=== PATIENT | female | born 2000 | race Caucasian/White ===

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

== ENCOUNTER 2018-01-03 10:09 | Emergency (ER) | payer MEDICAID ==
[2018-01-03 10:15] VITALS: BMI 26.7
--- NOTE | 2018-01-03 10:52 | ED PDOC ---
HPI: General Adult Time Seen by Provider: 01/03/18 10:30 Chief Complaint (Nursing): ENT Problem Chief Complaint (Provider): throat pain History Per: Patient History/Exam Limitations: no limitations Onset/Duration Of Symptoms: Days (2) Have you had recent travel within the past 21 days to any of the following countries: [place], [place], [place] or [place]?: No Current Symptoms Are (Timing): Still Present Severity: Moderate Additional Complaint(s): pt p/w + 2 days onset of sore throat, worse with swallowing foods/liquids, Pt IS NOT drooling, no voice changes; pt denied fever/chills/sweats, no neck pain, + mild headaches, no cp/sob/palpitations, no abd pain, no n/v, no numbness/ tingling; no urinary/bowel changes; pt states she took OTC aleve/Advil with min/ no relief; pt + sick contact, no fall/trauma/travel; pt arrived to the ED for further eval; pt's without other complaints. pt denied rashes pt is here for further eval PCP: none immunization: up to date LMP: 3 months ago?? Past Medical History Reviewed: Historical Data, Nursing Documentation, Vital Signs Vital Signs: Last Vital Signs Temp 98 F 01/03/18 10:13 Pulse 109 H 01/03/18 10:13 Resp BP 104/66 01/03/18 10:13 Pulse Ox 98 01/03/18 11:36 - Medical History PMH: Denies: Anemia, Anxiety, Arthritis, Asthma, Bronchitis, CHF, Crohn's Disease , Depression, Fibromyalgia, Fractures, Gastritis, Gall Bladder Disease, HIV, HTN , Hypercholesterolemia, Hyperthyroidism, Hypothyroidism, Kidney Stones, Migraine , Mitral Valve Prolapse, Pancreatitis, Peripheral Edema, Pneumonia, Pulmonary Embolism, Chronic Kidney Disease, Seizures, Sickle Cell Disease, Sleep Apnea - Surgical History Surgical History: Denies: Appendectomy, Cholecystectomy - Family History Family History: States: Unknown Family Hx - Living Arrangements Living Arrangements: Alone - Social History Current smoker - smoking cessation education provided: No Ex-Smoker (has not smoked in the last 12 months): No Alcohol: None Drugs: Denies - Immunization History Hx Tetanus Toxoid Vaccination: No Hx Influenza Vaccination: No - Home Medications Home Medications: Ambulatory Orders Medication Instructions Recorded Cephalexin [cephalexin] 500 mg PO BID #6 cap 05/14/17 Ibuprofen [Motrin Tab] 600 mg PO QID PRN #20 tab 09/08/17 Nitrofurantoin Macrocrystals 100 mg PO BID #14 cap 09/08/17 [Macrobid] Oseltamivir Phosphate [Tamiflu] 75 mg PO BID #10 capsule 09/08/17 Ciprofloxacin 0.3% [Ciloxan 0.3% 1 drop OU QID #1 bottle 09/24/17 Ophth SOLN] Acetaminophen [Tylenol 325mg tab] 2 tab PO QID PRN #30 tab 01/03/18 Lidocaine 2% Viscous 10 ml MM QID PRN #100 ml 01/03/18 - Allergies Allergies/Adverse Reactions: Allergies Allergy/AdvReac Type Severity Reaction Status Date / Time No Known Allergies Allergy Verified 05/06/15 22:45 Review of Systems ROS Statement: Except As Marked, All Systems Reviewed And Found Negative Constitutional: Negative for: Fever, Chills, Sweats, Weakness Eyes: Negative for: Pain ENT: Positive for: Throat Pain, Throat Swelling. Negative for: Ear Pain Cardiovascular: Negative for: Chest Pain, Paroxysmal Noc. Dyspnea Respiratory: Positive for: Cough. Negative for: Shortness of Breath, SOB with Exertion, Sputum Gastrointestinal: Negative for: Nausea, Vomiting, Abdominal Pain Genitourinary Female: Negative for: Dysuria, Frequency, Hematuria, Vaginal Discharge, Vaginal Bleeding Musculoskeletal: Negative for: Neck Pain, Shoulder Pain, Back Pain Skin: Negative for: Rash Neurological: Positive for: Headache. Negative for: Weakness, Altered Mental Status, Dizziness Psych: Negative for: Anxiety, Depression, Psychosis Physical Exam - Reviewed Nursing Documentation Reviewed: Yes Vital Signs Reviewed: Yes (elevated HR) - Physical Exam Comments: General: alert/awake, GCS = 15, oriented x 3, resting in bed, uncomfortable, cooperative, interactive; NAD Head: NC/AT EYE: PERRLA, EOMI, sclera anicteric, no nystagmus, no photophobia; visual field intact b/l Facial: WNL Oral: uvula/tongue are midline, no exudate/lesions, no pharyngeal erythema/ swelling noted, one whitish spot is noted to right upper tonsiliar region, NO masses/FB/lesions noted; no drooling/stridor, no dysphonia; intact dentitions NECK: intact ROM, no midline tenderness, no nuchal rigidity, no meningeal signs ; no step off; + anterior b/l LAD, NON-tender Chest: CTA b/l, no w/r/r; no tachypenia, no accessory muscle use noted Cardiac: +S1, +S2, no m/r/r, no tachycardia Abdominal: +BS, soft/nd/nt, well nourished patient; no masses/rebound/guarding/ rigidity; no dee's sign, no mcburney's point tenderness Extremities: intact ROM, strength 5/5 grossly intact in all limbs, neurovasc intact b/l; + ambulatory; reflex +2/2 BACK: no step off, no midline tenderness, NO crepitus, no gross deformities noted; Intact ROM SKIN: cap refill < 1 sec, no ulcerations, no petechiae, no rashes NEURO: CNII-XII WNL, no facial asymmetries, no slurr speech, oriented x 3 NIH stroke scale ~ 0 Psych: normal insight, normal affect; follows command with ease - Laboratory Results Urine POC: Positive - ECG O2 Sat by Pulse Oximetry: 98 Pulse Ox Interpretation: Normal - Progress ED Course And Treament: 12:05pm - pt felt improved after the medication pt is made aware of the Positive preg test pt is made aware of her medical results pt is encouraged fluid hydration pt will f/u as directed pt will be discharged home Re-evaluation Time: 11:34 Condition: Improving,but remains with symptoms Medical Decision Making Medical Decision Making: Impression: sore throat/headache/coughing i have consider all the differential diagnosis regarding pt's chief medical complaints/clinical findings, including but are not limited to: likely viral, will r/o bacterial; symptomatic treatment; pt also wants to check her preg status A/P: sore throat/headache, coughing - u preg - rapid strep test - supportive care - observe/reevaluation Disposition - Clinical Impression Clinical Impression: Sore throat (viral), - Patient ED Disposition Is Patient to be Admitted: No Counseled Patient/Family Regarding: Studies Performed, Diagnosis, Need For Followup, Rx Given - Disposition Referrals: PCP,NO [Non-Staff] - [facility] [place] [Outside] [facility] [employer] [Outside] [facility] [Outside] [facility] [Outside] Disposition: Routine/Home Disposition Time: 12:10 Condition: STABLE Additional Instructions: Make sure to see your doctor in 1-2 days DRINK PLENTY OF FLUIDS take your medications as prescribed RETURN TO ED IF worse pain, cant breath, persistent vomiting, high fever >101- 102 for hours, altered behavior, slurr speech, facial changes, focal weakness ( arm/leg or both), unable to urinate, heavy/persistent bleeding, passing out, chest pain, or other medical emergencies Prescriptions: Acetaminophen [Tylenol 325mg tab] 2 tab PO QID PRN #30 tab PRN Reason: Pain, Mild (1-3) Lidocaine 2% Viscous 10 ml MM QID PRN #100 ml PRN Reason: Sore Throat Instructions: Sore Throat in Adults, Medications and , Viral Pharyngitis Forms: [facility] (Yakut) Print Language: YORUBA
[2018-01-03] MEDS ORDERED: Dexamethasone 4 mg/1 ml IM ONE (12:08)
[2018-01-03 13:00] VITALS: BP 124/65; PULSE 76; RESP 17; TEMP 97.8; O2SAT 99
== END 2018-01-03 12:58 | disposition home or self-care (01) ==
LOC: H.ER 10:09
DX: J02.9 Acute pharyngitis, unspecified (principal); Z33.1 Pregnant state, incidental
CPT/HCPCS: 81025; 87070; 87430; 96372; 99282; J1100

== ENCOUNTER 2018-01-05 10:08 | Emergency (ER) | payer MEDICAID ==
[2018-01-05 10:08] VITALS: BMI 26.7
[2018-01-05 10:21] VITALS: BP 99/64; PULSE 94; RESP 16; TEMP 98.3; O2SAT 99
--- NOTE | 2018-01-05 10:33 | ED PDOC ---
HPI: CCC, URI, Sore Throat Time Seen by Provider: 01/05/18 10:24 History Per: Patient Onset/Duration Of Symptoms: Days (3) Current Symptoms Are (Timing): Still Present Location Of Pain: Throat Associated Symptoms: Sore Throat. denies: Fever, Cough Severity: Mild Pain Scale Rating Of: 2 Additional Complaint(s): Sore throat x 3 days. No fever or cough. No SOB Past Medical History Vital Signs: Last Vital Signs Temp 98.3 F 01/05/18 10:19 Pulse 94 H 01/05/18 10:19 Resp 16 01/05/18 10:19 BP 99/64 L 01/05/18 10:19 Pulse Ox 99 01/05/18 10:19 - Medical History PMH: Denies: Anemia, Anxiety, Arthritis, Asthma, Bronchitis, CHF, Crohn's Disease , Depression, Fibromyalgia, Fractures, Gastritis, Gall Bladder Disease, HIV, HTN , Hypercholesterolemia, Hyperthyroidism, Hypothyroidism, Kidney Stones, Migraine , Mitral Valve Prolapse, Pancreatitis, Peripheral Edema, Pneumonia, Pulmonary Embolism, Chronic Kidney Disease, Seizures, Sickle Cell Disease, Sleep Apnea - Surgical History Surgical History: Denies: Appendectomy, Cholecystectomy - Family History Family History: States: Unknown Family Hx - Immunization History Hx Tetanus Toxoid Vaccination: No Hx Influenza Vaccination: No - Home Medications Home Medications: Ambulatory Orders Medication Instructions Recorded Cephalexin [cephalexin] 500 mg PO BID #6 cap 05/14/17 Ibuprofen [Motrin Tab] 600 mg PO QID PRN #20 tab 09/08/17 Nitrofurantoin Macrocrystals 100 mg PO BID #14 cap 09/08/17 [Macrobid] Oseltamivir Phosphate [Tamiflu] 75 mg PO BID #10 capsule 09/08/17 Ciprofloxacin 0.3% [Ciloxan 0.3% 1 drop OU QID #1 bottle 09/24/17 Ophth SOLN] Acetaminophen [Tylenol 325mg tab] 2 tab PO QID PRN #30 tab 01/03/18 Lidocaine 2% Viscous 10 ml MM QID PRN #100 ml 01/03/18 Azithromycin [Zithromax] 250 mg PO DAILY #6 tab 01/05/18 - Allergies Allergies/Adverse Reactions: Allergies Allergy/AdvReac Type Severity Reaction Status Date / Time No Known Allergies Allergy Verified 05/06/15 22:45 Review of Systems Constitutional: Negative for: Fever ENT: Positive for: Throat Pain Respiratory: Negative for: Cough, Shortness of Breath Physical Exam - Physical Exam Appears: Positive for: Non-toxic, No Acute Distress Skin: Positive for: Normal Color, Warm, DRY ENT: Positive for: Pharyngeal Erythema. Negative for: Tonsillar Exudate Neck: Positive for: Normal, Painless ROM Respiratory: Positive for: CNT, Normal Breath Sounds - ECG O2 Sat by Pulse Oximetry: 99 Disposition - Clinical Impression Clinical Impression: Pharyngitis - Patient ED Disposition Is Patient to be Admitted: No Counseled Patient/Family Regarding: Diagnosis, Need For Followup, Rx Given - Disposition Referrals: [facility] [Outside] Disposition: Routine/Home Disposition Time: 10:33 Condition: FAIR Prescriptions: Azithromycin [Zithromax] 250 mg PO DAILY #6 tab Instructions: Sore Throat in Adults
== END 2018-01-05 10:42 | disposition home or self-care (01) ==
LOC: H.ER 10:08
DX: J02.9 Acute pharyngitis, unspecified (principal)

== ENCOUNTER 2018-01-19 12:27 | Emergency (ER) | payer MEDICAID ==
[2018-01-19 12:27] VITALS: BMI 26.7
--- NOTE | 2018-01-19 12:47 | ED PDOC ---
HPI: Female Pain Time Seen by Provider: 01/19/18 12:39 Chief Complaint (Nursing): Abdominal Pain Chief Complaint (Provider): Vaginal bleeding History Per: Patient History/Exam Limitations: no limitations Onset/Duration Of Symptoms: Days (today) Additional Complaint(s): Vaginal bleeding today. Pelvic cramps till yesterday. No nausea, vomit, diarrhea. No weakness. No back pain. No leg pain. Is 1 month preg. No dysuria. Past Medical History Reviewed: Nursing Documentation, Vital Signs Vital Signs: Last Vital Signs Temp 98.5 F 01/19/18 12:28 Pulse 83 01/19/18 12:28 Resp 14 01/19/18 12:28 BP 108/60 01/19/18 12:28 Pulse Ox 99 01/19/18 12:28 - Medical History PMH: Denies: Anemia, Anxiety, Arthritis, Asthma, Bronchitis, CHF, Crohn's Disease , Depression, Fibromyalgia, Fractures, Gastritis, Gall Bladder Disease, HIV, HTN , Hypercholesterolemia, Hyperthyroidism, Hypothyroidism, Kidney Stones, Migraine , Mitral Valve Prolapse, Pancreatitis, Peripheral Edema, Pneumonia, Pulmonary Embolism, Chronic Kidney Disease, Seizures, Sickle Cell Disease, Sleep Apnea - Surgical History Surgical History: Denies: Appendectomy, Cholecystectomy - Family History Family History: States: Unknown Family Hx - Living Arrangements Living Arrangements: With Family - Immunization History Hx Tetanus Toxoid Vaccination: No Hx Influenza Vaccination: No - Home Medications Home Medications: Ambulatory Orders Medication Instructions Recorded No Known Home Med 01/19/18 - Allergies Allergies/Adverse Reactions: Allergies Allergy/AdvReac Type Severity Reaction Status Date / Time No Known Allergies Allergy Verified 05/06/15 22:45 Review of Systems ROS Statement: Except As Marked, All Systems Reviewed And Found Negative Genitourinary Female: Positive for: Vaginal Bleeding, Pelvic Pain Physical Exam - Reviewed Nursing Documentation Reviewed: Yes Vital Signs Reviewed: Yes - Physical Exam Appears: Positive for: Non-toxic, No Acute Distress Head Exam: Positive for: ATRAUMATIC, NORMAL INSPECTION, NORMOCEPHALIC Skin: Positive for: Normal Color, Warm, DRY ENT: Positive for: Normal ENT Inspection Neck: Positive for: Normal, Painless ROM Cardiovascular/Chest: Positive for: Regular Rate, Rhythm Respiratory: Positive for: CNT, Normal Breath Sounds Gastrointestinal/Abdominal: Positive for: Soft, Tenderness (suprapubic) Back: Positive for: Normal Inspection. Negative for: L CVA Tenderness, R CVA Tenderness Extremity: Positive for: Normal ROM. Negative for: Tenderness, Pedal Edema Neurologic/Psych: Positive for: Alert, Oriented - Laboratory Results Result Diagrams: 01/19/18 13:55 01/19/18 13:55 Interpretation Of Abn Labs: elevated bhcg - ECG O2 Sat by Pulse Oximetry: 99 - CT Scan/US US Other Rad Studies (CT/US): Read By Radiologist Other Rad Interpretation: SLIUP; subchorionc bleed - Progress ED Course And Treament: 1536: Stable. AAOx3. Pain free. Tolerated po. FU with pcp. Disposition - Clinical Impression Clinical Impression: Threatened , Subchorionic bleed - Patient ED Disposition Is Patient to be Admitted: No Counseled Patient/Family Regarding: Studies Performed, Diagnosis, Need For Followup - Disposition [facility] - [facility]20[facility]18 Disposition: Routine/Home Disposition Time: 15:00 Condition: STABLE Additional Instructions: Return if not better in 3 days. Instructions: Threatened Miscarriage
--- NOTE | 2018-01-19 13:57 | US ---
PROCEDURE: OB Pelvic Ultrasound HISTORY: preg and pain COMPARISON: None available. FINDINGS: UTERUS: Single Live intrauterine gestation. Gestational sac diameter is 14 mm equal to 5 weeks 4 days gestational age CRL is 3 mm equal to 5 weeks 6 days gestational age. age (Ultrasound estimated): 5 weeks 5 days Date of delivery (Ultrasound estimated) : 09/16/2018 Heart rate: 122 bpm. Cyndi-gestational hemorrhage: Small. This measures 0.8 x 1.0 x 1.1 cm. A 2 mm yolk sac is identified. Uterus measures 8.2 x 5.0 x 6.2 cm. No mass CERVIX: Long and closed. No cervical abnormality seen. RIGHT OVARY: Measures 2.9 x 2.1 x 2.8 cm. No mass. Normal flow. LEFT OVARY: Measures 2.2 x 1.6 x 2.3 cm. No mass. Normal flow. FREE FLUID: None. OTHER FINDINGS: Bilateral adnexal varices. This may correlate with pelvic congestion syndrome. IMPRESSION: Single live intrauterine gestation of approximately 5 weeks 5 days gestational age. Small subchorionic hemorrhage. heart rate 122 beats per minute. Incidentally noted bilateral adnexal varices. See above.
[2018-01-19 14:06] LABS: BASO % 0.3 % (0.0-2.0); EOS # 0.1 K/uL (0.0-0.7); EOS % 1.8 % (0.0-4.0); HEMOGLOBIN 12.7 g/dL (12.0-16.0); LYMPH # 1.7 K/uL (1.0-4.3); LYMPH % 23.9 % (20.0-40.0); MEAN CELL VOLUME 89.9 fl (81.0-99.0); MEAN CORPUSCULAR HEMOGLOBIN 30.8 pg (27.0-31.0); MEAN CORPUSCULAR HGB CONC 34.3 g/dL (33.0-37.0); MONO # 0.5 K/uL (0.0-0.8); MONO % 7.2 % (0.0-10.0); NEUT # 4.8 K/uL (1.8-7.0); NEUT % 66.8 % (50.0-75.0); RBC 4.13 Mil/uL (3.80-5.20); RED CELL DISTRIBUTION WIDTH 13.5 % (11.5-14.5); WHITE BLOOD COUNT 7.1 K/uL (4.8-10.8)
[2018-01-19 14:16] LABS: BLOOD UREA NITROGEN 7 mg/dl (7-17); CALCIUM 9.5 mg/dL (8.4-10.2); GFR AFRICAN-AMERICAN > 60; GFR NON-AFRICAN AMERICAN > 60
[2018-01-19 16:07] VITALS: BP 109/50; PULSE 70; RESP 17; TEMP 97.7; O2SAT 100
== END 2018-01-19 16:00 | disposition home or self-care (01) ==
LOC: H.ER 12:27
DX: O20.0 Threatened abortion (principal); Z3A.01 Less than 8 weeks gestation of pregnancy

== ENCOUNTER 2018-01-25 15:51 | Emergency (ER) | payer MEDICAID ==
[2018-01-25 15:51] VITALS: BMI 26.7
[2018-01-25 16:05] VITALS: O2SAT 98
--- NOTE | 2018-01-25 16:30 | ED PDOC ---
HPI: Female Pain Time Seen by Provider: 01/25/18 16:21 Chief Complaint (Nursing): Female Genitourinary Chief Complaint (Provider): with pain and bleeding History Per: Patient Additional Complaint(s): 17-year-old female , currently 6 weeks presents with pain and bleeding 1 week. Patient was seen in ER last week and was told ultrasound was normal. She returns today with persistent bleeding and pain. She denies any dysuria. No nausea or vomiting, no fever or chills. Patient has no history of previous ectopic or miscarriages. OB: none Past Medical History Reviewed: Historical Data, Nursing Documentation, Vital Signs Vital Signs: Last Vital Signs Temp 98.9 F 01/25/18 16:01 Pulse 76 01/25/18 16:01 Resp 16 01/25/18 16:01 BP 96/61 L 01/25/18 16:01 Pulse Ox 98 01/25/18 16:01 - Medical History PMH: No Chronic Diseases - Surgical History Surgical History: No Surg Hx - Family History Family History: States: No Known Family Hx - Living Arrangements Living Arrangements: With Family - Social History Current smoker - smoking cessation education provided: No Alcohol: None Drugs: Denies - Home Medications Home Medications: Ambulatory Orders Medication Instructions Recorded No Known Home Med 01/19/18 - Allergies Allergies/Adverse Reactions: Allergies Allergy/AdvReac Type Severity Reaction Status Date / Time No Known Allergies Allergy Verified 05/06/15 22:45 Review of Systems ROS Statement: Except As Marked, All Systems Reviewed And Found Negative Constitutional: Negative for: Fever, Chills Respiratory: Negative for: Cough Gastrointestinal: Negative for: Nausea, Vomiting Genitourinary Female: Positive for: Vaginal Bleeding, Pelvic Pain. Negative for : Dysuria, Frequency Physical Exam - Reviewed Nursing Documentation Reviewed: Yes Vital Signs Reviewed: Yes - Physical Exam Appears: Positive for: Well, Non-toxic, No Acute Distress Skin: Positive for: Normal Color. Negative for: Rash Eye Exam: Positive for: Normal appearance Cardiovascular/Chest: Positive for: Regular Rate, Rhythm Respiratory: Positive for: Normal Breath Sounds. Negative for: Wheezing, Respiratory Distress Gastrointestinal/Abdominal: Positive for: Soft. Negative for: Tenderness, Distended, Guarding, Rebound Back: Negative for: L CVA Tenderness, R CVA Tenderness Neurologic/Psych: Positive for: Alert, Oriented - Laboratory Results Result Diagrams: 01/25/18 16:10 01/25/18 16:10 Urine dip results: Positive for: Blood. Negative for: Leukocyte Esterase, Nitrate, Ketones, Glucose, Bilirubin, Protein - ECG O2 Sat by Pulse Oximetry: 98 Pulse Ox Interpretation: Normal - Other Rad OB TV US X-Ray: Read By Radiologist X-Ray Interpretation: see below Medical Decision Making Medical Decision Makin17 year old female with bleeding and pain Plan: Urine dip OB US CBC CMP Beta Previous records reviewed. Beta from 01/19/18 was 18,701 Beta from today 51,888 Blood type O+ US: FINDINGS: LMP: Unknown Prior examinations from the current : 01/19 TECHNIQUE: Real-time 2D imaging, duplex and color Doppler. FINDINGS: Cardiac activity: Present Rate: 132 BPM Measurements: [place] rump length: 0.80 cm Gestational age based on CRL 6 weeks 5 days Gestational age 6 weeks 4 days based on gestational sac measurement 2.04 cm Gestational age derived from LMP: Cannot be ascertained based in the absence of a reliable/ known LMP KIEL based on LMP: Cannot be ascertained based in the absence of a reliable/ known LMP KIEL based on biometry: 09/15/2018 Gestational concordance cannot be determined. Yolk sac identified Uterus: Unremarkable. Cervix: No Cervical abnormalities: Negative examination for cervical dilatation or effacement. Closed cervix measuring 4.8 cm Subchorionic hemorrhage: Again identified. On the prior study this measured 0.8 x 1.1 cm. On present study this measures 2.1 x 1.8 cm. UTERUS: 6 x 4.7 x 9.7 cm. ADNEXA: Right: 1.1 x 1.2 x 2.2 cm. Normal Doppler arterial waveform documented. Left: 1.5 x 2.8 x 3.0 cm. Normal Doppler arterial waveform documented Fluid in the cul-de-sac: None IMPRESSION: Six weeks 5 days live intrauterine gestation. Adequate interval progression compared the prior study. Modest increase in subchorionic hemorrhage. Patient is aware of all diagnostic testing results, all questions answered. Patient was referred to clinic for follow-up. He should also aware she can return any time if acutely worse. Disposition - Clinical Impression Clinical Impression: Threatened , Subchorionic bleed - Patient ED Disposition Is Patient to be Admitted: No Counseled Patient/Family Regarding: Studies Performed, Diagnosis, Need For Followup - Disposition [facility] Disposition: Routine/Home Disposition Time: 19:06 Condition: STABLE Additional Instructions: Rest as much as possible and avoid heavy lifting, avoid intercourse, drink plenty of fluids. Follow-up with clinic in 2-3 days. Instructions: Threatened Miscarriage (DC), Bleeding With Forms: [employer] (Romansh) Results - Lab Results Lab Results: 01/25/18 01/25/18 16:10 16:10 WBC 6.8 RBC 3.93 Hgb 11.7 L Hct 35.5 MCV 90.3 MCH 29.9 MCHC 33.1 RDW 13.2 Plt Count 226 MPV 9.6 Neut % (Auto) 67.5 Lymph % (Auto) 23.2 Young % (Auto) 8.2 Eos % (Auto) 0.8 Baso % (Auto) 0.3 Neut # (Auto) 4.6 Lymph # (Auto) 1.6 Young # (Auto) 0.6 Eos # (Auto) 0.1 Baso # (Auto) 0.0 Sodium 137 Potassium 3.9 Chloride 104 Carbon Dioxide 26 Anion Gap 11 BUN 9 Creatinine 0.6 L Est GFR ( Amer) > 60 Est GFR (Non-Af Amer) > 60 Random Glucose 85 Calcium 9.0 Total Bilirubin 0.5 AST 30 ALT 40 Alkaline Phosphatase 73 Total Protein 7.4 Albumin 4.0 Globulin 3.4 Albumin/Globulin Ratio 1.2 Beta HCG, Quant 38166.00
[2018-01-25 17:29] LABS: BASO % 0.3 % (0.0-2.0); EOS # 0.1 K/uL (0.0-0.7); EOS % 0.8 % (0.0-4.0); HEMOGLOBIN 11.7 g/dL (12.0-16.0); LYMPH # 1.6 K/uL (1.0-4.3); LYMPH % 23.2 % (20.0-40.0); MEAN CELL VOLUME 90.3 fl (81.0-99.0); MEAN CORPUSCULAR HEMOGLOBIN 29.9 pg (27.0-31.0); MEAN CORPUSCULAR HGB CONC 33.1 g/dL (33.0-37.0); MEAN PLATELET VOLUME 9.6 fl (7.2-11.7); MONO # 0.6 K/uL (0.0-0.8); MONO % 8.2 % (0.0-10.0); NEUT # 4.6 K/uL (1.8-7.0); NEUT % 67.5 % (50.0-75.0); NRBC % 0.1 % (0.0-0.0); RBC 3.93 Mil/uL (3.80-5.20); RED CELL DISTRIBUTION WIDTH 13.2 % (11.5-14.5); WHITE BLOOD COUNT 6.8 K/uL (4.8-10.8)
[2018-01-25 17:41] LABS: ALB/GLOB RATIO 1.2 (1.0-2.1); ALT/SGPT 40 U/L (9-52); AST/SGOT 30 U/L (14-36); BLOOD UREA NITROGEN 9 mg/dl (7-17); GFR AFRICAN-AMERICAN > 60; GFR NON-AFRICAN AMERICAN > 60
--- NOTE | 2018-01-25 18:19 | US ---
PROCEDURE: First trimester ultrasound HISTORY: approx 6 weeks, pain and bleeding COMPARISON: 01/19/2018. TECHNIQUE: Standard protocol for this study/examination. FINDINGS: LMP: Unknown Prior examinations from the current : 01/19/2018 TECHNIQUE: Real-time 2D imaging, duplex and color Doppler. FINDINGS: Cardiac activity: Present Rate: 132 BPM Measurements: [place] rump length: 0.80 cm Gestational age based on CRL 6 weeks 5 days Gestational age 6 weeks 4 days based on gestational sac measurement 2.04 cm Gestational age derived from LMP: Cannot be ascertained based in the absence of a reliable/ known LMP KIEL based on LMP: Cannot be ascertained based in the absence of a reliable/ known LMP KIEL based on biometry: 09/15/2018 Gestational concordance cannot be determined. Yolk sac identified Uterus: Unremarkable. Cervix: No Cervical abnormalities: Negative examination for cervical dilatation or effacement. Closed cervix measuring 4.8 cm Subchorionic hemorrhage: Again identified. On the prior study this measured 0.8 x 1.1 cm. On present study this measures 2.1 x 1.8 cm. UTERUS: 6 x 4.7 x 9.7 cm. ADNEXA: Right: 1.1 x 1.2 x 2.2 cm. Normal Doppler arterial waveform documented. Left: 1.5 x 2.8 x 3.0 cm. Normal Doppler arterial waveform documented Fluid in the cul-de-sac: None IMPRESSION: Six weeks 5 days live intrauterine gestation. Adequate interval progression compared the prior study. Modest increase in subchorionic hemorrhage.
[2018-01-25 19:31] VITALS: BP 136/60; PULSE 70; RESP 18; TEMP 98.5
== END 2018-01-25 19:30 | disposition home or self-care (01) ==
LOC: H.ER 15:51
DX: O20.0 Threatened abortion (principal); Z3A.01 Less than 8 weeks gestation of pregnancy

== ENCOUNTER 2018-04-09 07:56 | Emergency (ER) | payer MEDICAID ==
[2018-04-09 08:02] VITALS: BMI 25.1
--- NOTE | 2018-04-09 08:13 | ED PDOC ---
HPI: Female Pain Time Seen by Provider: 04/09/18 08:07 Chief Complaint (Provider): Dysuria History Per: Patient History/Exam Limitations: no limitations Onset/Duration Of Symptoms: Days (2) Associated Symptoms: Urinary Symptoms (Dysuria and frequency), Other (Abdominal pain). denies: Fever, Chills, Back Pain Additional Complaint(s): 18 years old female approximately 17 weeks presents to the ED for evaluation of dysuria and frequency associated with suprapubic pain onset 2 days. Patient denies any fever, chills, back pain or vaginal bleeding. PMD: non provided Past Medical History Reviewed: Historical Data, Nursing Documentation, Vital Signs Vital Signs: Last Vital Signs Temp 98.9 F 04/09/18 08:01 Pulse 102 H 04/09/18 08:01 Resp 17 04/09/18 08:01 BP 95/63 L 04/09/18 08:01 Pulse Ox 99 04/09/18 08:01 - Medical History PMH: No Chronic Diseases - Surgical History Surgical History: No Surg Hx - Family History Family History: States: Unknown Family Hx - Home Medications Home Medications: Ambulatory Orders Medication Instructions Recorded Nitrofurantoin Macrocrystals 100 mg PO BID #20 cap 04/09/18 [Macrobid] - Allergies Allergies/Adverse Reactions: Allergies Allergy/AdvReac Type Severity Reaction Status Date / Time No Known Allergies Allergy Verified 05/06/15 22:45 Review of Systems ROS Statement: Except As Marked, All Systems Reviewed And Found Negative Constitutional: Negative for: Fever, Chills Gastrointestinal: Positive for: Abdominal Pain (Suprapubic pain) Genitourinary Female: Positive for: Dysuria, Frequency. Negative for: Vaginal Bleeding Physical Exam - Reviewed Nursing Documentation Reviewed: Yes Vital Signs Reviewed: Yes - Physical Exam Appears: Positive for: Non-toxic, No Acute Distress Head Exam: Positive for: ATRAUMATIC, NORMOCEPHALIC Gastrointestinal/Abdominal: Positive for: Normal Exam, Other (Gravid). Negative for: Tenderness Back: Negative for: L CVA Tenderness, R CVA Tenderness Neurologic/Psych: Positive for: Alert, Oriented (x3) - ECG O2 Sat by Pulse Oximetry: 99 (RA) Pulse Ox Interpretation: Normal Medical Decision Making Medical Decision Making: Time: 820 Initial Plan: --Urine Culture --Urinalysis --Urine dipstick Previous US shows presence of heart beat at 140. Scribe Attestation: Documented by Brooke Parkinson, acting as a scribe for Morales Bhatti MD. Provider Scribe Attestation: All medical record entries made by the Scribe were at my direction and personally dictated by me. I have reviewed the chart and agree that the record accurately reflects my personal performance of the history, physical exam, medical decision making, and the department course for this patient. I have also personally directed, reviewed, and agree with the discharge instructions and disposition. Disposition - Clinical Impression Clinical Impression: Urinary tract infection - Patient ED Disposition Is Patient to be Admitted: No Counseled Patient/Family Regarding: Studies Performed, Diagnosis, Need For Followup, Rx Given - Disposition [facility] Disposition: Routine/Home Disposition Time: 08:29 Condition: FAIR Prescriptions: Nitrofurantoin Macrocrystals [Macrobid] 100 mg PO BID #20 cap Instructions: Urinary Tract Infections in Adults
[2018-04-09 08:37] VITALS: BP 100/60; PULSE 90; RESP 18; TEMP 97; O2SAT 98
[2018-04-09 09:02] LABS: SQUAMOUS EPITHIAL 14 /hpf (0-5); URINE BACTERIA OCC (<OCC); URINE BILIRUBIN NEGATIVE (NEGATIVE); URINE BLOOD NEGATIVE (NEGATIVE); URINE CLARITY CLOUDY (Clear); URINE COLOR YELLOW (YELLOW); URINE GLUCOSE (UA) NEG (Normal); URINE LEUKOCYTE ESTERASE TRACE Leu/uL (Negative); URINE PROTEIN 30 mg/dL (NEGATIVE); URINE UROBILINOGEN 0.2-1.0 mg/dL (0.2-1.0)
== END 2018-04-09 08:38 | disposition home or self-care (01) ==
LOC: H.ER 07:56
DX: N39.0 Urinary tract infection, site not specified (principal)

== ENCOUNTER 2018-09-10 08:44 | Emergency (ER) | payer MEDICAID ==
[2018-09-10 08:44] VITALS: BMI 25.1
[2018-09-10 08:50] VITALS: RESP 18; TEMP 97.9
--- NOTE | 2018-09-10 09:26 | ED PDOC ---
HPI: CCC, URI, Sore Throat Time Seen by Provider: 09/10/18 09:04 Chief Complaint (Nursing): ENT Problem Chief Complaint (Provider): ENT Problem History Per: Patient History/Exam Limitations: no limitations Onset/Duration Of Symptoms: Days (x7) Current Symptoms Are (Timing): Still Present Additional Complaint(s): Patient is a 18 y/o female with no significant PMHx who presents to the ED for evaluation of a sore throat, ear ache, and nasal congestion for the past week. Of note, patient is 39 weeks with good movement. Patient denies fever, cough, abdominal pain, and vaginal discharge or bleeding. PCP: None Provided Past Medical History Reviewed: Historical Data, Nursing Documentation, Vital Signs Vital Signs: Last Vital Signs Temp 97.9 F 09/10/18 08:50 Pulse 80 09/10/18 08:50 Resp 18 09/10/18 08:50 BP 108/73 09/10/18 08:50 Pulse Ox 98 09/10/18 08:53 - Medical History PMH: No Chronic Diseases - Surgical History Surgical History: No Surg Hx - Family History Family History: States: Unknown Family Hx - Home Medications Home Medications: Ambulatory Orders Medication Instructions Recorded Nitrofurantoin Macrocrystals 100 mg PO BID #20 cap 04/09/18 [Macrobid] Loratadine [Claritin] 10 mg PO DAILY #5 tab 09/10/18 - Allergies Allergies/Adverse Reactions: Allergies Allergy/AdvReac Type Severity Reaction Status Date / Time No Known Allergies Allergy Verified 09/10/18 08:52 Review of Systems ROS Statement: Except As Marked, All Systems Reviewed And Found Negative Constitutional: Negative for: Fever ENT: Positive for: Ear Pain (ache), Nose Congestion, Throat Pain (sore) Respiratory: Negative for: Cough Gastrointestinal: Negative for: Abdominal Pain Genitourinary Female: Negative for: Vaginal Discharge, Vaginal Bleeding Physical Exam - Reviewed Nursing Documentation Reviewed: Yes Vital Signs Reviewed: Yes - Physical Exam Appears: Positive for: Non-toxic, No Acute Distress Head Exam: Positive for: ATRAUMATIC, NORMAL INSPECTION, NORMOCEPHALIC Skin: Positive for: Normal Color, Warm, Dry Eye Exam: Positive for: EOMI, Normal appearance, PERRL ENT: Positive for: Normal ENT Inspection Neck: Positive for: Normal, Painless ROM, Supple Cardiovascular/Chest: Positive for: Regular Rate, Rhythm. Negative for: Murmur Respiratory: Positive for: Normal Breath Sounds. Negative for: Respiratory Distress Gastrointestinal/Abdominal: Positive for: Normal Exam, Soft. Negative for: Tenderness Back: Positive for: Normal Inspection. Negative for: L CVA Tenderness, R CVA Tenderness, Vertebral Tenderness Extremity: Positive for: Normal ROM. Negative for: Pedal Edema, Deformity Neurologic/Psych: Positive for: Alert, Oriented. Negative for: Motor/Sensory Deficits - ECG O2 Sat by Pulse Oximetry: 98 (RA) Pulse Ox Interpretation: Normal Medical Decision Making Medical Decision Making: Time: 921 Impression: Strep and flu, however, most likely viral URI Plan: Influenza A B Rapid Strep Group A Antigen Scribe Attestation: Documented by Babak Vital, acting as a scribe for Morales Bhatti MD. Provider Scribe Attestation: All medical record entries made by the Scribe were at my direction and personally dictated by me. I have reviewed the chart and agree that the record accurately reflects my personal performance of the history, physical exam, medical decision making, and the department course for this patient. I have also personally directed, reviewed, and agree with the discharge instructions and disposition. Disposition - Clinical Impression Clinical Impression: URI (upper respiratory infection) - Patient ED Disposition Is Patient to be Admitted: No Counseled Patient/Family Regarding: Studies Performed, Diagnosis, Need For Followup, Rx Given - Disposition Referrals: [facility] [Outside] Disposition: Routine/Home Disposition Time: 09:58 Condition: FAIR Prescriptions: Loratadine [Claritin] 10 mg PO DAILY #5 tab Instructions: Viral Upper Respiratory Infection, Adult (DC) Forms: [employer] (Kiswahili)
[2018-09-10 10:07] VITALS: BP 111/71; PULSE 96; O2SAT 100
== END 2018-09-10 10:06 | disposition home or self-care (01) ==
LOC: H.ER 08:44
DX: J06.9 Acute upper respiratory infection, unspecified (principal); O99.513 Diseases of the respiratory system complicating pregnancy, third trimester; Z3A.39 39 weeks gestation of pregnancy

== ENCOUNTER 2018-09-19 02:40 | Inpatient (IN) | payer MEDICAID ==
[2018-09-19 03:07] VITALS: BMI 31.8
[2018-09-19] MEDS ORDERED: Lactated Ringer's 1,000 ML IV SCH ×2 (04:30→21:06)
--- NOTE | 2018-09-19 04:35 | OBHP ---
Datetime: 09/19/2018 04:31 IP Adm Impression: Term, intrauterine IP Admit Plan: Admit to unit; Initiate labor protocol Admit Comment, IP Provider: 18 yo at 40+4 wks w/ EDC 09/15/2018 by u/s per pt, reports that she had a gush of clear-white fluid around 0130, also reports re-tinged d/c. Pt reports ctxns every 5 minutes, started earler today. Pt received her care w/ Dr. Alatorre w/. [facility] and want to deliver in [place]. Pt does not have her records w/ her. PMH: Healthy PSH: None Meds: PNVs All: NKDA Soc hx: Pt denies tobacco, alcohol and ilicit drug use Fam hx: N/c [employer] hx: menarche atr 10 yo, irreg periods (every 2 weeks to 2 months) Obhx: 10/2014 VD, male , weighing 8#14 PE: AFVSS Gen'l: Pt appears in NAD, lying in bed Heart: RRR Chest: Lungs CTA b/l Abd: soft, NT, gravid Ext: NT Spec: pink- tinged mucus, no water seen , neg fern VE: 2-3/ 65/ -3 at 4 am EFM: as above [facility]: as abve A/P: 18 yo at 40+4 wks in labor. Will need to obtain her PN records. FHT reactive. GBS s tatus unknown. Extremities - PN: Normal Abdomen - PN: Normal Back - PN: Normal Heart - PN: Normal Neurologic - PN: Normal General - PN: Normal FHR - Baseline A Provider: 130's Pool Provider: Negative Ferning Provider: Negative IP Indication for Induction: Not Applicable IP Chief Complaint: Uterine contractions; Suspected ruptured membranes NICHD Variability Prov Fetus A: Moderate 6-25bpm NICHD Accel Fetus A IP Provider: [id number] FHR Category Provider Fetus A: Category I NICHD Decel Fetus A IP Provider: None Dilatation, Provider: 2-3 Effacement, Provider: 65 Station, Provider: -3 Genitourinary Exam: Normal Datetime: 09/19/2018 04:17 Lungs - PN: Normal Contraction Comments Provider: irreg Vital Signs Provider: Reviewed; Within Normal Limits
[2018-09-19] MEDS: Lactated Ringer's 1,000 ML IV SCH ×2 (05:15→15:50)
[2018-09-19 05:53] LABS: BASO % 0.3 % (0.0-2.0); EOS # 0.1 K/uL (0.0-0.7); EOS % 0.6 % (0.0-4.0); HEMOGLOBIN 11.7 g/dL (12.0-16.0); LYMPH % 22.8 % (20.0-40.0); MEAN CELL VOLUME 88.9 fl (81.0-99.0); MEAN CORPUSCULAR HEMOGLOBIN 29.7 pg (27.0-31.0); MEAN CORPUSCULAR HGB CONC 33.4 g/dL (33.0-37.0); MEAN PLATELET VOLUME 10.2 fl (7.2-11.7); MONO # 0.6 K/uL (0.0-0.8); MONO % 6.9 % (0.0-10.0); NEUT # 6.2 K/uL (1.8-7.0); NEUT % 69.4 % (50.0-75.0); RBC 3.93 Mil/uL (3.80-5.20); RED CELL DISTRIBUTION WIDTH 15.6 % (11.5-14.5); WHITE BLOOD COUNT 8.9 K/uL (4.8-10.8)
--- NOTE | 2018-09-19 10:49 | OBPN ---
Datetime: 09/19/2018 10:33 IP Informed Consent Obtain: Vaginal Delivery IP Procedures: Sterile Vag Exam IP Progress Plan: Continue present management Membranes, Provider: Intact Contraction Comments Provider: Irregular contractions FHR - Baseline A Provider: 150 IP Progress Note Comment: Patient evaluated, feeling some cramps, not asking for pain medication VE = 2/50/-3 FHR = 150 mod luiz, +accels, no decels TOCO = irregualr contractions A/P 1. Will start Cytotec PO q 4hours for augmentation 2. CEFM and TOCO 3. Re-evaluate as needed Vital Signs Provider: Reviewed; Within Normal Limits NICHD Accel Fetus A IP Provider: [id number] NICHD Variability Prov Fetus A: Moderate 6-25bpm Dilatation, Provider: 2 Effacement, Provider: 50 Station, Provider: -3 Datetime: 09/19/2018 04:31 Pool Provider: Negative Ferning Provider: Negative FHR Category Provider Fetus A: Category I NICHD Decel Fetus A IP Provider: None
[2018-09-19 13:24] LABS: BARBITURATES, UR NEGATIVE (NEGATIVE); BENZODIAZEPINES, UR NEGATIVE (NEGATIVE); OPIATES, UR NEGATIVE (NEGATIVE); PHENCYCLIDINE, UR NEGATIVE (NEGATIVE)
[2018-09-19] MEDS ORDERED: Oxytocin 30 UNIT 30 UNITS/500 ML BAG IV ONE ×2 (15:49→16:02)
[2018-09-19] MEDS ORDERED: OXYTOCIN/0.9 % NS 20 UNIT/1,000 ML BAG IV SCH ×2 (16:00→16:15)
[2018-09-19] MEDS ORDERED: ceFAZolin 2 GM in Sodium Chloride 0.9% 100 ML IVPB ONE (16:00)
[2018-09-19] MEDS ORDERED: Phenylephrine 10 mg/ml Inj ONE (16:04)
[2018-09-19] MEDS ORDERED: Morphine 1 mg/ml preservative-free Inj(Duramorph) ONE (16:04)
[2018-09-19] MEDS ORDERED: ePHEDrine 50 mg/ml Inj ONE (16:04)
--- NOTE | 2018-09-19 16:06 | OBPN ---
Datetime: 09/19/2018 16:02 IP Informed Consent Obtain: Section Delivery Contraction Comments Provider: Q 2 mins FHR - Baseline A Provider: 125 Presentation-Admit: Breech IP Progress Note Comment: Patient evaluated, feeling increased pain with Cytotec medication and want ed to speak with MD. Patient evalauted and examined. -/-2 with questionable presenting part, bul ging and intact. Patient scanned at bedside and found to be breech presentation - confirmed twice and showed patient presenting part is not vertex. Patient verbalized understanding and counselled patien t delivery to be done at this point by . consented patient for surgery, risks/benefits revie wed and patient signed informed consent. Ancef to be given pre-operatively and scds to be placed. Pat ient to be taken to OR when available. All questions answered by patient Vital Signs Provider: Reviewed; Within Normal Limits NICHD Accel Fetus A IP Provider: [id number] NICHD Variability Prov Fetus A: Moderate 6-25bpm Dilatation, Provider: 5 Effacement, Provider: 80 Station, Provider: -2
[2018-09-19] MEDS ORDERED: Midazolam 2 MG/2 ML VIAL ONE (16:43)
[2018-09-19] MEDS ORDERED: Esmolol 100 mg/10ml Inj IV ONE (16:49)
[2018-09-19] MEDS ORDERED: Oxycodone/Acetaminophen 5/325 mg Tab PO PRN ×3 (17:27→21:06)
--- NOTE | 2018-09-19 17:28 | OBDS ---
DELIVERY PERSONNEL Delivery Doctor: Giuliana Camara MD [place] Blank Handler: Fabienne Mcpherson RN Anesthesiologist: Dr Palacios Resident: Dr Ross OB Fellow MATERNAL INFORMATION Delivery Anesthesia: Spinal Medications in Delivery: cytotec Estimated Blood Loss (ml): 800 Placenta Cultured: No Maternal Complications: None Provider Comments: Surgeon: Dr.F Camara Ladle Filler: Dr. Subhash Ross Pre-op Dx: early labor, term, transverse presentation Surgery: LTCS Post-op: same Findings: Live male infant, transverse presentation, delivered colin breech, 9lbs 5 oz, 9/9, clear fluid, terminal meconium, grossly nml tubes ovaries, placenta, uterus EBL: 800mL UO: 200mL Anesthesia: spinal by Dr. Palacios Total input: 1600mL COmplications: NOne COndition: stable Pathology: cord blood LABOR SUMMARY EDC: 09/15/2018 00:00 No. Babies in Womb: 1 Attempted: No Labor Anesthesia: None LABOR INFORMATION Cervical Ripening Agents: Cytotec @ Oxytocin: N/A Group B Beta Strep: Done, Result Unknown Antibiotics # of Doses: 0 Antibiotics Time of Last Dose: 0 Steroids Given: None Reason Steroids Not Administered: Not Applicable STAGES OF LABOR Stage 3 hrs: 0 Stage 3 min: 1 CSECTION DELIVERY Primary Indication: Breech Presentation CSection Urgency: Elective CSection Incidence: Primary Labor: Labor Elective: Elective CSection Incision: Lower Uterine Transverse BABY A INFORMATION Infant Delivery Date/Time: 09/19/2018 16:48 Method of Delivery: Born in Route : No : N/A Forceps: N/A Vacuum Extraction: N/A Shoulder Dystocia : No SHOULDER DYSTOCIA BABY A Delivery Date/Time: 09/19/2018 16:48 PRESENTATION/POSITION BABY A Presentation: Breech Cephalic Presentation: N/A Breech Presentation: Complete PLACENTA INFORMATION BABY A Placenta Delivery Time : 09/19/2018 16:49 Placenta Method of Delivery: Manual Removal Placenta Status: Delivered SCORES BABY A Heart Rate 1 min: >100 bpm Resp Effort 1 min: Good Cry Reflex Irritability 1 min: Cough or Sneeze or Pulls Away Muscle Tone 1 min: Active Motion Color 1 min: Body [place], Extremities Blue SCORE 1 MIN: 9 Heart Rate 5 min: >100 bpm Resp Effort 5 min: Good Cry Reflex Irritability 5 min: Cough or Sneeze or Pulls Away Muscle Tone 5 min: Active Motion Color 5 min: Body [place], Extremities Blue SCORE 5 MIN: 9 INFANT INFORMATION BABY A Gestational Age at Delivery: 40.4 Gestational Status: Term Outcome : Liveborn Condition : Stable Infant Sex: Male IDENTIFICATION/MEDS BABY A ID Band Number: [id number] ID Band Location: Left Leg; Left Arm WEIGHT/LENGTH BABY A Infant Birthweight (gms): 4240 Weight (lb): 9 Infant Weight (oz): 6 CORD INFORMATION BABY A No. Cord Vessels: 3 Nuchal Cord : Around Neck x1, Loose Nuchal Cord Other: 0 True Knot: 0 Cord Blood Taken: Yes Suction: Mouth; Nose
[2018-09-19] MEDS ORDERED: DiphenhydrAMINE 50 mg/ml Inj IVP PRN ×2 (19:11→21:06)
[2018-09-19] MEDS ORDERED: Simethicone 80 mg Chewtab PO SCH (22:00)
[2018-09-19] MEDS: Simethicone 80 mg Chewtab PO SCH (22:37)
--- NOTE | 2018-09-20 01:34 | OP ---
PROCEDURE DATE: 09/19/2018 SURGEON: Shanika Camara MD CRM MARKETING EXECUTIVE: Dr. Veronica Ross PREOPERATIVE DIAGNOSES: 1. Term . 2. Early labor. 3. Transverse presentation. POSTOPERATIVE DIAGNOSES: 1. Term . 2. Early labor. 3. Transverse presentation. SURGERY: Low-transverse section. FINDINGS: Live male , transverse presentation converted into colin breech presentation, 9 pounds 5 ounces, 9 and 9 Apgars. Clear fluid. Terminal meconium. Grossly normal tubes, ovaries, placenta, uterus. ESTIMATED BLOOD LOSS: 800 mL. URINE OUTPUT: 200 mL. ANESTHESIA: Spinal. ANESTHESIA ADMINISTERED BY: . TOTAL FLUID INPUT: 1600 mL. COMPLICATIONS: None. CONDITION: Stable. PATHOLOGY SPECIMEN: Cord blood. INDICATIONS: This is a 18-year-old G2, P1-0-0-1 at 40 weeks and 4 days who presents to Labor and Delivery in early labor. The patient progressed to 5 cm, found to be transverse presentation at this point based on bedside scan, it was advised to the patient at this point to proceed with delivery via . Risks and benefits of procedure were advised including risk of bleeding, infection, damage to surrounding organs such as bowel, bladder, ureter, and uterus. The patient verbalized understanding and signed informed consent. DESCRIPTION OF PROCEDURE: The patient was taken to OR. Ancef was given preoperatively. SCDs were placed bilaterally. The patient was prepped and draped in the normal sterile fashion in dorsal supine position with leftward tilt. A Pfannenstiel skin incision was made with the scalpel and carried through the underlying layer of fascia with the Bovie. Fascia was incised in the midline. The incision was extended laterally with the Cobb scissors. Lindsey clamps were used to tent up the inferior aspect of this incision, which we dissected off of the underlying pyramidalis muscles with the Cobb scissors. In a similar fashion, we tented up the superior aspect of this incision, which we dissected off the underlying rectus abdominis muscles with the Cobb scissors and Bovie. Muscles were bluntly in the midline. The peritoneum was identified and entered bluntly. The incision was extended superiorly and inferiorly with good visualization of all underlying organs. A bladder blade was inserted. The vesicouterine peritoneum was identified, grabbed with pickups, and the bladder flap was created with Metzenbaum scissors. Lower uterine segment was incised in a transverse fashion. The surgeon identified the presenting cord at this point which felt to be transverse presentation back down. The infant was convert in to colin breech presentation for delivery. Infant was delivered followed by body and head atraumatically. Cord was clamped and cut. Mouth and nose were suctioned. Infant was handed off to awaiting pediatric team. The placenta was extracted manually. The uterus was exteriorized, cleared of all clots. The uterine incision was repaired with an 1 Vicryl stitch, and second imbricating stitch was done with an 0 Monocryl stitch. Hysterotomy site appeared to be hemostatic. The uterus was returned to the abdomen. Gutters were cleared of all clots. The hysterotomy site appeared again to be infected and was hemostatic. The peritoneum was closed with a 2-0 Monocryl. The muscles were reapproximated with 0 Vicryl stitch. All bleeders were cauterized with the Bovie. The fascia was closed with 0 Vicryl. Subcutaneous fat was reapproximated with plain gut. All bleeders were cauterized with the Bovie. The skin was closed with a 4-0 Monocryl. Sponge, lap, and needle counts were correct x4. There were no other complications. The patient was taken to recovery room in stable condition. Shanika Camara MD
[2018-09-20] MEDS: Simethicone 80 mg Chewtab PO SCH ×5 (04:00→23:05)
[2018-09-20 06:50] LABS: HEMOGLOBIN 7.9 g/dL (12.0-16.0); MEAN CELL VOLUME 89.4 fl (81.0-99.0); MEAN CORPUSCULAR HEMOGLOBIN 29.5 pg (27.0-31.0); RBC 2.69 Mil/uL (3.80-5.20); RED CELL DISTRIBUTION WIDTH 15.4 % (11.5-14.5); WHITE BLOOD COUNT 12.5 K/uL (4.8-10.8)
[2018-09-20] MEDS: Oxycodone/Acetaminophen 5/325 mg Tab PO PRN ×3 (08:56→23:05)
[2018-09-20] MEDS: Multivitamin With Minerals Tab PO SCH (08:57)
[2018-09-20] MEDS ORDERED: Multivitamin With Minerals Tab PO SCH (09:00)
[2018-09-20 14:21] VITALS: RESP 20
[2018-09-21 00:46] LABS: HEMOGLOBIN 9.8 g/dL (12.0-16.0); MEAN CELL VOLUME 90.2 fl (81.0-99.0); MEAN CORPUSCULAR HEMOGLOBIN 29.9 pg (27.0-31.0); MEAN CORPUSCULAR HGB CONC 33.2 g/dL (33.0-37.0); RBC 3.26 Mil/uL (3.80-5.20); RED CELL DISTRIBUTION WIDTH 14.7 % (11.5-14.5); WHITE BLOOD COUNT 11.8 K/uL (4.8-10.8)
[2018-09-21] MEDS: Simethicone 80 mg Chewtab PO SCH ×4 (04:27→22:00)
--- NOTE | 2018-09-21 07:56 | OBPPN ---
Datetime: 09/21/2018 06:07 PP Pain Prov: Within normal limits PP Nausea Prov: Denies PP Flatus Prov: No PP Breasts Prov: Not Done PP Heart Prov: Normal PP Lungs Prov: Normal PP Abdomen/Uterus Prov: Normal PP Lochia Prov: Normal PP Vulva/Perineum Prov: Not Done PP CVA Tenderness Prov: Not Done PP Extremities Prov: Normal PP C/S Incision Prov: Normal PP Progress Prov: Normal PP Impression Prov: Normal progression PP Plan Prov: Continue present management IP PP Procedures: None Vital Signs Provider PP: Reviewed Datetime: 09/20/2018 05:20 PP BM Prov: No PP Progress Note Prov: POD 1 S: 18 yo s/p C-sec on 09/19/18, POD1. No overnight events. Pain tolerated with medication. Ambulating without dizziness/ lightheadedness/palpatations. and bottle feeding. Lochia < menses. + flatus/+ BM. Denies fever/chills, diarrhea, nausea/vomiting, chest pain, dyspnea, and di zziness. Tolerating regular diet. O: VS: stable GEN: NAD Cardio: S1S2, no murmurs Lungs: clear breath sounds b/l, no wheezing Abdomen: BS+, appropriate tenderness to palpation. Incision not visualized, dressing intact dry an d clean. Uterus is firm and at the level of the umbilicus. Appropriate tenderness EXT: No edema, calves non-tender NEURO/PSYCH: AAOx3, no grossly focal deficits, preserved affect and mood. H/H: aCBC 11.7/35.0 pCBC: PENDING Assessment/Plan: 18 yo s/p C-sec on 09/19/18, POD1. Pt remains afebrile, tolerating pain wi th medication. -Anticipating discharge 09/22 -Encourage ambulating -Percocet 5/325mg q4 and Motrin 600mg po q6 for pain as per pain scale -Senakot 17.2mg po QHS -Mylicon 80mg Q6H -Encourage and ambulation CBC H/H: dropped from 11.7/35.0 to 7.9/24.1 - patient to be transfused 1 unit pRBC given patient is symptomatic - Dizziness - Orthostatics: laying down: BP: 106/66 HR: 125; Sittin/58 HR: 132 ; Standing 98/68 HR: 133. Patient was dizzy when standing. Case discussed with Dr Hoa Mcleod PGY1 OB Hospitalist note: Pt sen on rounds and note to have tachycardai. Orthostatics done by PGY1. Pt felt dizzy and hearrate 130's...Hb 7 - condition excpalined to pt...she understands and her questtio ns answered. will transfuse PRBC x 2
[2018-09-21] MEDS: Multivitamin With Minerals Tab PO SCH (09:36)
[2018-09-22] MEDS: Simethicone 80 mg Chewtab PO SCH ×2 (04:00→08:47)
[2018-09-22 06:33] LABS: MEAN CELL VOLUME 91.6 fl (81.0-99.0); MEAN CORPUSCULAR HEMOGLOBIN 30.6 pg (27.0-31.0); MEAN CORPUSCULAR HGB CONC 33.4 g/dL (33.0-37.0); RBC 3.25 Mil/uL (3.80-5.20); RED CELL DISTRIBUTION WIDTH 15.3 % (11.5-14.5)
[2018-09-22] MEDS: Oxycodone/Acetaminophen 5/325 mg Tab PO PRN (08:24)
[2018-09-22] MEDS: Multivitamin With Minerals Tab PO SCH (08:48)
--- NOTE | 2018-09-22 15:20 | OBDCSUM ---
Datetime: 09/22/2018 05:51 Discharged to, Provider: Home Follow up at, Provider: [facility] Activity: Normal activity Disch Instr Diet: Regular Discharge Instructions, Provider: Routine instructions given Discharge Diagnosis, Provider: Term Delivered Discharge Time: 09/22/2018 13:45 Follow up in weeks, Provider: 1 week wound check, 6 weeks post Disch Referrals: None Contraception discussed, Prov: Yes Disch Activity Restrictions: No exercising; No sexual activity; Nothing in vagina - Peyton, alethea bruno Discharge Comment, Provider: 18 yo s/p C-sec of baby boy on 09/19/18 at 40+4 weeks EGA. : Male, Wt. 4224 gm, 9/9 Post- D/C Summary: No OB complications. No complications during post- period. Lochia i s less than menses. Pt able to pass flatus, voiding well and able to ambulate without difficulty. Adm its to one BM. Tolerating regular diet w/o N/V. Fundus firm below umbilicus level. Pt is hemodynamica lly stable (EBL 800cc; 300 cc clots extracted s/p c/s POD 0). H/H: aCBC: 11.7/35.0; pCBC: 9.8/29.4 s/p 2PRBC ( previous 7.9/24.1) Discharge Instructions given to patient: Encourage PNV 1 tab po q/day Ibuprofen 600 mg 1 tab po prn q4-6 if moderate pain #30. NO REFILL. Percocet 5/325 mg 1tab po prn q6h if severe pain #20. NO REFILL Ambulatory with caution, nothing per vagina/sex for 4 weeks, no heavy lifting, avoid stairs, if ex cessive bleeding or fever without relief from Tylenol go to ED Follow-up [facility] ([place]) 1 week wound check and 6 week visit. Case discussed wtih Dr Dhruv Mcleod PGY1 Attending addendum: I saw and examined the patient at bedside myself this morning. I reviewed the resident note, agree with findings and management. Elinor Howe MD Contraception after Delivery: Undecided
--- NOTE | 2018-09-22 15:21 | OBPPN ---
Datetime: 09/22/2018 05:50 PP Pain Prov: Within normal limits PP Nausea Prov: Denies PP Flatus Prov: Yes PP BM Prov: No PP Breasts Prov: Not Done PP Heart Prov: Normal PP Lungs Prov: Normal PP Abdomen/Uterus Prov: Normal PP Lochia Prov: Normal PP Vulva/Perineum Prov: Not Done PP CVA Tenderness Prov: Normal PP Extremities Prov: Normal PP C/S Incision Prov: Normal PP Progress Prov: Normal PP Impression Prov: Normal progression PP Plan Prov: Continue present management PP Progress Note Prov: POD 3 S: 18 yo s/p C-sec on 09/19/18, POD3. No overnight events. Pain tolerated with medication. Ambulating without dizziness/ lightheadedness/palpatations. and bottle feeding. Lochia < menses. - flatus/- BM. Admits to left hip/lower extremity pain when walking but denies fever/chill s, diarrhea, nausea/vomiting, chest pain, dyspnea, and dizziness. Tolerating regular diet. O: VS: stable GEN: NAD Cardio: S1S2, no murmurs Lungs: clear breath sounds b/l, no wheezing Abdomen: BS+, appropriate tenderness to palpation. Incision not visualized, dressing intact dry an d clean. Uterus is firm and at the level of the umbilicus. Appropriate tenderness EXT: No edema, calves non-tender NEURO/PSYCH: AAOx3, no grossly focal deficits, preserved affect and mood. H/H: aCBC 11.7/35.0 pCBC: 9.8/29.4 s/p 2 PRBC (7.9/24.1) Assessment/Plan: 18 yo s/p C-sec on 09/19/18, POD3. Pt remains afebrile, tolerating pain wi th medication. -Anticipating discharge 09/22 -Percocet 5/325mg q4 and Motrin 600mg po q6 for pain as per pain scale -Colace 100mg BID -Ferrous Sulfate 325mg TID -Mylicon 80mg Q6H -Encourage and ambulation Case discussed with Dr Dhruv Mcleod PGY1 Attending addendum: I saw and examined the patient at bedside myself this morning. I reviewed the resident note above and agree with findings and management. Patient had 1 episode of emesis after taking 2 percocet tabs. She didn't need any percocet yesterd ay, will be discharged w/ rx but told only to take 1 pill for severe pain. Pt to mostly use ibuprofen for pain. Patient denied any headache and was able to ambulate. DC Home, f/u with OB within 1 week for wound check, or sooner if needed for any sx. MD Elinor Putnam MD IP PP Procedures: None Vital Signs Provider PP: Reviewed; Within Normal Limits
[2018-09-22 18:11] VITALS: BP 133/91; PULSE 99; TEMP 98.1; O2SAT 99
== END 2018-09-22 13:45 | disposition home or self-care (01) | DRG 540 ==
LOC: H.EROB2 02:40 → H.L&D 04:18 → H.OB/GYN 20:30
PROVIDERS: ADMIT Obstetrics & Gynecology; ATTEND Obstetrics & Gynecology
PROC: 4A1HXCZ Monitoring of Products of Conception, Cardiac Rate, External Approach (ICD-10-PCS; 2018-09-19)
PROC: 10D00Z1 Extraction of Products of Conception, Low, Open Approach (ICD-10-PCS; principal; 2018-09-20)
DX: O32.1XX0 Maternal care for breech presentation, not applicable or unspecified (principal); O77.0 Labor and delivery complicated by meconium in amniotic fluid; Z37.0 Single live birth; O69.81X0 Labor and delivery complicated by cord around neck, without compression, not applicable or unspecified; Z3A.40 40 weeks gestation of pregnancy

== ENCOUNTER 2018-09-24 11:00 | Emergency (ER) | payer MEDICAID, OTHER ==
[2018-09-24 11:00] VITALS: BMI 31.8
[2018-09-24 11:08] VITALS: RESP 18
[2018-09-24] MEDS ORDERED: Sodium Chloride 0.9% 1,000 ML IV STA (12:16)
--- NOTE | 2018-09-24 12:51 | ED PDOC ---
HPI: Back Time Seen by Provider: 09/24/18 12:01 Chief Complaint (Nursing): Back Pain Chief Complaint (Provider): Neck Pain History Per: Patient History/Exam Limitations: no limitations Onset/Duration Of Symptoms: Days (x5) Additional Complaint(s): 18 years old female present to ER 5 days status post section for evaluation of continuing neck pain. Patient states she had pain prior to discharge from hospital and was given Ibuprofen which only provides minimal relief. She reports she is able to perform activity of daily living and care for her . Patient is . She states she is concerned because she has a friend who had and told her she might need blood patch. Patient denies any headache, weakness, dizziness or loss of sensation. PMD: No provider Past Medical History Reviewed: Historical Data, Nursing Documentation, Vital Signs Vital Signs: Last Vital Signs Temp 98.0 F 09/24/18 11:06 Pulse 69 09/24/18 11:06 Resp 18 09/24/18 11:06 BP 132/82 09/24/18 11:06 Pulse Ox 100 09/24/18 11:06 - Medical History PMH: No Chronic Diseases Denies: Depression, Diabetes, HTN - Surgical History Surgical History: - Family History Family History: States: Unknown Family Hx - Social History Current smoker - smoking cessation education provided: No Alcohol: None Drugs: Denies - Home Medications Home Medications: Ambulatory Orders Medication Instructions Recorded Multivit/Folic Acid/I 1 tab PO DAILY 09/19/18 [] - Allergies Allergies/Adverse Reactions: Allergies Allergy/AdvReac Type Severity Reaction Status Date / Time No Known Allergies Allergy Verified 09/19/18 03:04 Review of Systems ROS Statement: Except As Marked, All Systems Reviewed And Found Negative Musculoskeletal: Positive for: Neck Pain Neurological: Negative for: Weakness, Headache, Dizziness, Other (Loss of sensation) Physical Exam - Reviewed Nursing Documentation Reviewed: Yes Vital Signs Reviewed: Yes - Physical Exam Appears: Positive for: Well, No Acute Distress Head Exam: Positive for: ATRAUMATIC, NORMOCEPHALIC Skin: Positive for: Normal Color, Warm, Dry Eye Exam: Positive for: Normal appearance, EOMI, PERRL ENT: Positive for: Other (Lips dry) Neck: Positive for: Painless ROM (No pain on neck flexion. Paraspinal tenderness to palpation along upper trapezius bilaterally), Supple Cardiovascular/Chest: Positive for: Regular Rate, Rhythm. Negative for: Murmur Respiratory: Positive for: Normal Breath Sounds. Negative for: Respiratory Distress Gastrointestinal/Abdominal: Positive for: Normal Exam, Soft. Negative for: Tenderness Back: Positive for: Normal Inspection. Negative for: L CVA Tenderness, R CVA Tenderness Extremity: Positive for: Normal ROM. Negative for: Pedal Edema, Swelling Neurologic/Psych: Positive for: Alert, Oriented (x3) - Laboratory Results Result Diagrams: 09/24/18 13:00 09/24/18 13:00 - ECG O2 Sat by Pulse Oximetry: 100 (RA) Pulse Ox Interpretation: Normal Medical Decision Making Medical Decision Making: Time: 1216 MDM: Paraspinal neck pain --Toradol and Ibuprofen for pain --IV fluids --Will discuss with anesthesiologist --Reassess patient 1400 Pain mildly improved with medications and IV fluids. Pt moving all extremities and no neurologic deficits. Pt states she has been unable to follow up with her coloring checker at [facility] since delivering her baby at this hospital. Will give referral to [facility]. Return parameters discussed. Scribe Attestation: Documented by Brooke Parkinson, acting as a scribe for Rosa Smith MD. Provider Scribe Attestation: All medical record entries made by the Scribe were at my direction and person ally dictated by me. I have reviewed the chart and agree that the record accurately reflects my personal performance of the history, physical exam, medical decision making, and the department course for this patient. I have also personally directed, reviewed, and agree with the discharge instructions and disposition. Disposition - Clinical Impression Clinical Impression: Epidural anesthesia-induced headache during puerperium, Neck pain, musculoskeletal - Disposition Referrals: [facility] [Outside] Disposition: Routine/Home Disposition Time: 13:50 Condition: IMPROVED Instructions: Generalized Neck Pain (DC) Forms: [facility] (Sammarinese) Print Language: [id number]
[2018-09-24 13:12] LABS: BASO % 0.2 % (0.0-2.0); EOS # 0.1 K/uL (0.0-0.7); EOS % 0.9 % (0.0-4.0); HEMOGLOBIN 10.6 g/dL (12.0-16.0); LYMPH # 1.2 K/uL (1.0-4.3); MEAN CELL VOLUME 90.3 fl (81.0-99.0); MEAN CORPUSCULAR HEMOGLOBIN 30.8 pg (27.0-31.0); MEAN CORPUSCULAR HGB CONC 34.2 g/dL (33.0-37.0); MEAN PLATELET VOLUME 8.4 fl (7.2-11.7); MONO # 0.4 K/uL (0.0-0.8); MONO % 5.2 % (0.0-10.0); NEUT # 6.4 K/uL (1.8-7.0); NEUT % 78.7 % (50.0-75.0); NRBC % 0.2 % (0.0-0.0); RBC 3.45 Mil/uL (3.80-5.20); WHITE BLOOD COUNT 8.2 K/uL (4.8-10.8)
[2018-09-24 13:27] LABS: BLOOD UREA NITROGEN 13 mg/dl (7-17); CALCIUM 9.1 mg/dL (8.4-10.2); GFR NON-AFRICAN AMERICAN > 60
[2018-09-24 14:39] VITALS: BP 136/79; PULSE 94; TEMP 98.9; O2SAT 99
== END 2018-09-24 14:31 | disposition home or self-care (01) ==
LOC: H.ER 11:00
DX: M54.2 Cervicalgia (principal); O74.5 Spinal and epidural anesthesia-induced headache during labor and delivery
CPT/HCPCS: 80048; 85025; 96361; 96374; 99284; J1885; J7030